=== PATIENT | male | born 1980 | race Caucasian/White ===

== ENCOUNTER 2019-08-15 16:22 | Emergency (ER) | payer OTHER ==
--- NOTE | 2019-08-15 17:51 | EDM.PDOCBH ---
ED HPI GENERAL MEDICAL PROBLEM - General Chief Complaint: Behavioral/Psych Stated Complaint: DEPRESSION Time Seen by Provider: 08/15/19 16:44 Source of Information: Reports: Patient History Limitations: Reports: No Limitations - History of Present Illness INITIAL COMMENTS - FREE TEXT/NARRATIVE: Mr. Clark is a pleasant 39-year-old man with no chronic medical problems, who is brought to the ED by the police, however, he is not under arrest. His story , as best I can piece together, is that he is a binge alcoholic, drinking heavily on weekends, and that he recently took custody of his 4 and 6-year-old children, they are having recently been in foster care. Apparently the patient' s mother has a problem with drugs and is involved with the patient or his children. The patient states that he drank approximately 8 drinks of whiskey today. He then allowed his 2 children to go on a walk in the neighborhood by themselves. They apparently got lost but did manage to find their way home after about an hour and half. A neighbor may have become aware of the situation, because somebody called the police, who then showed up at the patient's residence and took the children to the children's daycare provider. The police then brought the patient here, because he is upset that social worker health services will take his children away again. The patient states that he does not have a history of depression or other psychiatric issues, and that he has never been psychiatrically hospitalized. He is tearful here in the ED, but denies feeling depressed or suicidal. Instead , he states that he is "f*cking pissed off", stating that social worker health services "better not" take his children away. The patient states that he has not previously been to inpatient alcohol treatment, however, he states that he has been to outpatient alcohol treatment, most recently last year. The patient denies recent fever, chills, sore throat, ear pain, nasal or sinus congestion, cough, dyspnea, chest pain, palpitations, nausea, vomiting, constipation, diarrhea, abdominal pain, urinary symptoms, recent weight gain or weight loss, recent bloody bowel movements or black bowel movements, recent joint aches, headaches, or rashes. The patient's PCP is at the [place]. - Related Data Allergies Allergy/AdvReac Type Severity Reaction Status Date / Time No Known Allergies Allergy Verified 08/15/19 16:48 Past Medical History Psychiatric History: Reports: Addiction (alcohol) - Past Surgical History HEENT Surgical History: Reports: Oral Surgery (wisdom teeth extraction), Other ( See Below) (Facial plastic surgery) Musculoskeletal Surgical History: Reports: Carpal Tunnel (right only) Social & Family History - Tobacco Use Smoking Status *Q: Current Every Day Smoker Years of Tobacco use: 25 Packs/Tins Daily: 0.1 Packs/Tins Daily Comment: Down from 04/16 ppd - Caffeine Use Caffeine Use: Reports: Coffee - Alcohol Use Alcohol Use History: Yes Alcohol Use Frequency: Binges (on weekends) - Recreational Drug Use Recreational Drug Use: Yes Drug Use in Last 12 Months: No Recreational Drug Type: Reports: Marijuana/Hashish (last smoked around 1999) - Living Situation & Occupation Living situation: Reports: Single, with Family (2 kids) Occupation: Employed (manager functional) ED ROS GENERAL - Review of Systems Review Of Systems: Comprehensive ROS is negative, except as noted in HPI. ED EXAM, BEHAVIORAL HEALTH - Physical Exam Exam: See Below Exam Limited By: No Limitations General Appearance: Alert, WD/WN, Mild Distress (tearful) Eye Exam: Bilateral Eye: EOMI, Normal Inspection Ears: Normal External Exam, Hearing Grossly Normal Nose: Normal Inspection Throat/Mouth: Normal Inspection, Normal Lips, Normal Voice, No Airway Compromise Head: Atraumatic, Normocephalic Neck: Normal Inspection, Full Range of Motion Respiratory/Chest: No Respiratory Distress, Lungs Clear, Normal Breath Sounds, No Accessory Muscle Use Cardiovascular: Normal Peripheral Pulses, Regular Rate, Rhythm, No Edema, No Gallop, No JVD, No Murmur, No Rub GI/Abdominal: Normal Bowel Sounds, Soft, Non-Tender, No Organomegaly, No Distention, No Abnormal Bruit, No Mass (Male) Exam: Deferred Rectal (Males) Exam: Deferred Back Exam: Normal Inspection, Full Range of Motion, NT Extremities: Normal Inspection, Normal Range of Motion, No Pedal Edema, Normal Capillary Refill Neurological: Alert, Normal Cognition, No Motor/Sensory Deficits, Oriented x 3 Psychiatric: Tearful Skin Exam: Warm, Dry, Intact, Normal color, No rash COURSE, BEHAVIORAL HEALTH COMP - Course Vital Signs: Last Vital Signs Temp 36.7 C 08/15/19 16:38 Pulse 97 08/15/19 16:38 Resp 16 08/15/19 16:38 BP 159/102 H 08/15/19 16:38 Pulse Ox 98 08/15/19 16:38 Medical Clearance: 08/15/19 17:44 As above, the patient is upset that social worker health services may take his children away from him, and he sort-of implied that he might feel suicidal if that happens, however, he denied actually feeling suicidal, and he stated that he has no past psychiatric history. The patient did not want to explore the option of discussing his situation with a Psychiatrist by telemedicine or have me discuss his situation with a Psychiatrist after medical clearance, however, he was receptive to the idea of following up at [facility] tomorrow. He then called his friend, Ariel, who seemed to be familiar with [facility] (or perhaps works at [facility]), and recommended that the patient show up there between 8:00 and 9:30 tomorrow morning for an evaluation. I will therefore discharge the patient home at this time. I advised that he not drink again tonight, and try to get some rest. He said that he would. Departure - Departure Time of Disposition: 17:46 Disposition: Home, Self-Care 01 Condition: Good Clinical Impression: Stress, Alcohol dependence, binge pattern - Discharge Information *PRESCRIPTION DRUG MONITORING PROGRAM REVIEWED*: Not Applicable *COPY OF PRESCRIPTION DRUG MONITORING REPORT IN PATIENT HELEN: Not Applicable Referrals: Giovanna Nelson MD [Primary Care Provider] - Additional Instructions: You were seen in the emergency room regarding stress over the possibility that your children might be taken away due to your drinking today. Discussion with a psychiatrist following medical clearance was offered, but declined. We recommend that you not drink any alcohol tonight, get plenty of rest, then follow-up at [facility] tomorrow morning between 8:00 and 9:30: [address] [phone] If any other problems, including worsening depression or thoughts of suicide, please do not hesitate to return to the ER. Sepsis Event Note - Evaluation Sepsis Screening Result: No Definite Risk - Focused Exam Vital Signs: Vital Signs Temp Pulse Resp BP Pulse Ox 08/15/19 16:38 36.7 C 97 16 159/102 H 98 Date Exam was Performed: 08/15/19 Time Exam was Performed: 17:44
== END 2019-08-15 17:55 | disposition home or self-care (01) ==
LOC: JD.ED 16:22
DX: F43.9 Reaction to severe stress, unspecified (principal); F10.20 Alcohol dependence, uncomplicated; F50.81 Binge eating disorder; F17.210 Nicotine dependence, cigarettes, uncomplicated
CPT/HCPCS: 99283; 99284

== ENCOUNTER 2021-02-24 12:36 | Emergency (ER) | payer OTHER | END 2021-02-24 13:50 | disposition left against medical advice (07) | LOC: JD.ED 12:36 | DX: Z53.21 Procedure and treatment not carried out due to patient leaving prior to being seen by health care provider (principal) ==